=== PATIENT | female | born 1980 | race Two or more races ===

== ENCOUNTER 2021-03-14 19:17 | Inpatient (IN) | payer MEDICAID ==
[~2021-03-14] VITALS: Ht 160 cm; Wt 98.4 kg
[2021-03-14 19:17] VITALS: BP 149/104
[~2021-03-14 19:17] MED LIST: INSULIN GLARGINE UD 100 UNITS/ML SYR SUBCUT SCH
[2021-03-14 20:00] VITALS: BP 142/93
[2021-03-14] MEDS ORDERED: BENZONATATE 100MG CAPSULE PO PRN (22:15)
[2021-03-14] MEDS ORDERED: ONDANSETRON HCL 4MG TABLET PO PRN (22:15)
[2021-03-14] MEDS ORDERED: DEXTROSE 50% WATER 50ML SYRINGE IV PRN (22:15)
[2021-03-14] MEDS ORDERED: DIPHENHYDRAMINE 25MG CAPSULE PO PRN (22:15)
[2021-03-14] MEDS ORDERED: GLUCAGON,HUMAN RECOMBINANT 1MG/VIAL IM PRN (22:15)
[2021-03-14] MEDS ORDERED: DOCUSATE SODIUM 100MG CAPSULE PO PRN (22:15)
[2021-03-14] MEDS ORDERED: ACETAMINOPHEN 325MG TABLET PO PRN (22:15)
[2021-03-14] MEDS: BLOOD SUGAR DIAGNOSTIC STRIP TEST SCH (22:30)
[2021-03-14] MEDS: METOPROLOL TARTRATE 25MG TABLET PO SCH (23:56)
[2021-03-14] MEDS: HYDROCODONE/APAP 7.5/325MG 1 TAB TABLET PO PRN (23:57)
[2021-03-14] MEDS: ATORVASTATIN CALCIUM 40MG TABLET PO SCH (23:57)
[2021-03-15] MEDS: INSULIN GLARGINE UD 100 UNITS/ML SYR SUBCUT SCH ×3 (00:06→22:00)
[2021-03-15] MEDS: INSULIN LISPRO 100 UNITS/ML SUBCUT SCH ×5 (00:06→21:00)
[2021-03-15] MEDS ORDERED: *PATIENT'S OWN MEDICATION STORAGE XX SCH (02:45)
[2021-03-15] MEDS ORDERED: DIPH25TA62 MT (03:29)
[2021-03-15] MEDS: BLOOD SUGAR DIAGNOSTIC STRIP TEST SCH ×4 (06:25→21:19)
[2021-03-15 08:23] VITALS: BP 124/67
[2021-03-15] MEDS ORDERED: ENOXAPARIN 40MG/0.4ML SYR SUBCUT SCH (09:00)
[2021-03-15] MEDS: CLOPIDOGREL 75MG TABLET PO SCH (09:33)
[2021-03-15] MEDS: METOPROLOL TARTRATE 25MG TABLET PO SCH ×2 (09:34→21:20)
[2021-03-15] MEDS: ASPIRIN 325MG EC TABLET PO SCH (09:34)
[2021-03-15 10:05] LABS: BASOPHILS % 0.6 % (0.0-2.0); EOSINOPHILS % 1.2 % (0.0-5.0); HEMATOCRIT. 40.3 % (36.0-48.0); HEMOGLOBIN. 13.1 g/dL (12.0-16.0); LYMPHOCYTES % 29.6 % (20.0-50.0); MEAN CORPUSCULAR VOLUME 82.7 fL (81.0-99.0); MEAN PLATELET VOLUME 9.1 fl (7.4-10.4); MONOCYTES % 7.3 % (2.0-8.0); NEUTROPHILS % 61.3 % (40.0-76.0); PLATELET 267 x1000/uL (130-400); RED BLOOD CELL COUNT 4.87 mill/uL (4.2-5.4); RED CELL DISTRIBUTION WIDTH 14.1 % (11.6-14.6)
[2021-03-15 10:06] LABS: CHLORIDE 108 mEq/L (98-107)
[2021-03-15] MEDS: ENOXAPARIN 30MG/0.3ML SYR SUBCUT SCH ×2 (11:55→21:20)
[2021-03-15] MEDS: DOCUSATE SODIUM 100MG CAPSULE PO SCH ×2 (15:13→17:00)
[2021-03-15 20:00] VITALS: BP 164/89
[2021-03-15] MEDS: ATORVASTATIN CALCIUM 40MG TABLET PO SCH (21:19)
[2021-03-15] MEDS: HYDROCODONE/APAP 7.5/325MG 1 TAB TABLET PO PRN (21:22)
[2021-03-16] MEDS: BLOOD SUGAR DIAGNOSTIC STRIP TEST SCH ×4 (06:30→20:19)
[2021-03-16 08:04] VITALS: BP 150/96
[2021-03-16] MEDS: DOCUSATE SODIUM 100MG CAPSULE PO SCH ×2 (08:50→16:24)
[2021-03-16] MEDS: ENOXAPARIN 30MG/0.3ML SYR SUBCUT SCH ×2 (08:50→20:20)
[2021-03-16] MEDS: METOPROLOL TARTRATE 25MG TABLET PO SCH ×2 (08:51→20:19)
[2021-03-16] MEDS: CLOPIDOGREL 75MG TABLET PO SCH (08:51)
[2021-03-16] MEDS: ASPIRIN 325MG EC TABLET PO SCH (08:51)
[2021-03-16] MEDS: INSULIN LISPRO 100 UNITS/ML SUBCUT SCH ×4 (08:53→20:19)
[2021-03-16] MEDS: INSULIN GLARGINE UD 100 UNITS/ML SYR SUBCUT SCH ×2 (09:01→21:13)
[2021-03-16 20:00] VITALS: BP_SYST 148; BP_SYST 163; BP_DIAS 80; BP_DIAS 85
[2021-03-16] MEDS: ATORVASTATIN CALCIUM 40MG TABLET PO SCH (20:19)
[2021-03-16] MEDS: HYDROCODONE/APAP 7.5/325MG 1 TAB TABLET PO PRN (20:24)
[2021-03-17] MEDS: HYDROCODONE/APAP 7.5/325MG 1 TAB TABLET PO PRN ×2 (02:34→20:48)
[2021-03-17] MEDS: INSULIN LISPRO 100 UNITS/ML SUBCUT SCH ×4 (05:39→20:42)
[2021-03-17] MEDS: BLOOD SUGAR DIAGNOSTIC STRIP TEST SCH ×4 (05:39→20:43)
[2021-03-17 08:00] VITALS: BP 140/74
[2021-03-17] MEDS: ASPIRIN 325MG EC TABLET PO SCH (08:50)
[2021-03-17] MEDS: DOCUSATE SODIUM 100MG CAPSULE PO SCH ×2 (08:50→16:01)
[2021-03-17] MEDS: POLYETHYLENE GLYCOL 3350 (17GM) 1 DOSE PACK PO PRN (08:50)
[2021-03-17] MEDS: METOPROLOL TARTRATE 25MG TABLET PO SCH ×2 (08:51→20:42)
[2021-03-17] MEDS: CLOPIDOGREL 75MG TABLET PO SCH (08:51)
[2021-03-17] MEDS: ENOXAPARIN 30MG/0.3ML SYR SUBCUT SCH ×2 (08:51→20:43)
[2021-03-17] MEDS: INSULIN GLARGINE UD 100 UNITS/ML SYR SUBCUT SCH ×2 (10:40→21:47)
[2021-03-17 20:00] VITALS: BP 168/102
[2021-03-17 20:42] VITALS: BP 145/99
[2021-03-17] MEDS: ATORVASTATIN CALCIUM 40MG TABLET PO SCH (20:42)
[2021-03-18] MEDS: HYDROCODONE/APAP 7.5/325MG 1 TAB TABLET PO PRN ×2 (05:13→20:24)
[2021-03-18] MEDS: INSULIN LISPRO 100 UNITS/ML SUBCUT SCH ×4 (05:20→20:19)
[2021-03-18] MEDS: BLOOD SUGAR DIAGNOSTIC STRIP TEST SCH ×4 (05:20→20:19)
[2021-03-18 08:00] VITALS: BP 113/68
[2021-03-18] MEDS: ASPIRIN 325MG EC TABLET PO SCH (09:44)
[2021-03-18] MEDS: METOPROLOL TARTRATE 25MG TABLET PO SCH ×2 (09:44→20:19)
[2021-03-18] MEDS: CLOPIDOGREL 75MG TABLET PO SCH (09:45)
[2021-03-18] MEDS: DOCUSATE SODIUM 100MG CAPSULE PO SCH ×2 (09:45→17:12)
[2021-03-18] MEDS: ENOXAPARIN 30MG/0.3ML SYR SUBCUT SCH ×2 (09:45→20:19)
[2021-03-18] MEDS: INSULIN GLARGINE UD 100 UNITS/ML SYR SUBCUT SCH ×2 (10:00→21:21)
[2021-03-18] MEDS: BACLOFEN 10MG TABLET PO SCH (17:12)
[2021-03-18 20:00] VITALS: BP 135/93
[2021-03-18] MEDS: ATORVASTATIN CALCIUM 40MG TABLET PO SCH (20:18)
[2021-03-19] MEDS: BLOOD SUGAR DIAGNOSTIC STRIP TEST SCH ×4 (05:56→21:03)
[2021-03-19] MEDS: INSULIN LISPRO 100 UNITS/ML SUBCUT SCH ×4 (05:56→21:00)
[2021-03-19] MEDS: HYDROCODONE/APAP 7.5/325MG 1 TAB TABLET PO PRN ×3 (05:57→21:20)
[2021-03-19 08:00] VITALS: BP 140/83
[2021-03-19] MEDS: DOCUSATE SODIUM 100MG CAPSULE PO SCH ×2 (11:27→16:32)
[2021-03-19] MEDS: ASPIRIN 325MG EC TABLET PO SCH (11:28)
[2021-03-19] MEDS: BACLOFEN 10MG TABLET PO SCH ×2 (11:28→16:32)
[2021-03-19] MEDS: METOPROLOL TARTRATE 25MG TABLET PO SCH ×2 (11:29→21:05)
[2021-03-19] MEDS: CLOPIDOGREL 75MG TABLET PO SCH (11:30)
[2021-03-19] MEDS: ENOXAPARIN 30MG/0.3ML SYR SUBCUT SCH ×2 (11:32→21:06)
[2021-03-19] MEDS: INSULIN GLARGINE UD 100 UNITS/ML SYR SUBCUT SCH ×2 (11:35→21:07)
[2021-03-19] MEDS: POLYETHYLENE GLYCOL 3350 (17GM) 1 DOSE PACK PO PRN (15:26)
[2021-03-19 20:00] VITALS: BP 139/91
[2021-03-19] MEDS: ATORVASTATIN CALCIUM 40MG TABLET PO SCH (21:04)
[2021-03-20] MEDS: BLOOD SUGAR DIAGNOSTIC STRIP TEST SCH ×4 (06:41→21:00)
[2021-03-20 08:00] VITALS: BP 115/73
[2021-03-20] MEDS: INSULIN LISPRO 100 UNITS/ML SUBCUT SCH ×4 (09:00→22:15)
[2021-03-20] MEDS: ASPIRIN 325MG EC TABLET PO SCH (09:37)
[2021-03-20] MEDS: METOPROLOL TARTRATE 25MG TABLET PO SCH ×2 (09:38→22:16)
[2021-03-20] MEDS: CLOPIDOGREL 75MG TABLET PO SCH (09:38)
[2021-03-20] MEDS: DOCUSATE SODIUM 100MG CAPSULE PO SCH ×2 (09:38→18:14)
[2021-03-20] MEDS: BACLOFEN 10MG TABLET PO SCH ×2 (09:38→18:14)
[2021-03-20] MEDS: ENOXAPARIN 30MG/0.3ML SYR SUBCUT SCH ×2 (09:38→22:16)
[2021-03-20] MEDS: HYDROCODONE/APAP 7.5/325MG 1 TAB TABLET PO PRN ×2 (09:51→22:14)
[2021-03-20] MEDS: INSULIN GLARGINE UD 100 UNITS/ML SYR SUBCUT SCH ×2 (10:28→22:16)
[2021-03-20] MEDS ORDERED: ONDANSETRON HCL 4MG/2ML INJ IV PRN (10:45)
[2021-03-20] MEDS ORDERED: HYDRALAZINE 10 MG in SODIUM CHLORIDE 0.9% 49.5 ML IV PRN (11:00)
[2021-03-20] MEDS ORDERED: HYDRALAZINE 20MG/ML VIAL IV SCH (12:00)
[2021-03-20] MEDS: CLONIDINE HCL 0.2MG/24HR PATCH TD SCH (12:24)
[2021-03-20 20:00] VITALS: BP 148/96
[2021-03-20] MEDS: ATORVASTATIN CALCIUM 40MG TABLET PO SCH (22:17)
[2021-03-21] MEDS: HYDROCODONE/APAP 7.5/325MG 1 TAB TABLET PO PRN ×2 (04:16→18:11)
[2021-03-21] MEDS: BLOOD SUGAR DIAGNOSTIC STRIP TEST SCH ×4 (06:46→21:00)
[2021-03-21] MEDS: DOCUSATE SODIUM 100MG CAPSULE PO SCH ×2 (08:41→17:44)
[2021-03-21] MEDS: BACLOFEN 10MG TABLET PO SCH ×2 (08:42→17:44)
[2021-03-21] MEDS: CLOPIDOGREL 75MG TABLET PO SCH (08:42)
[2021-03-21] MEDS: ASPIRIN 325MG EC TABLET PO SCH (08:42)
[2021-03-21] MEDS: METOPROLOL TARTRATE 25MG TABLET PO SCH ×2 (08:43→22:28)
[2021-03-21] MEDS: ENOXAPARIN 30MG/0.3ML SYR SUBCUT SCH ×2 (08:44→22:28)
[2021-03-21] MEDS: INSULIN LISPRO 100 UNITS/ML SUBCUT SCH ×4 (08:46→21:00)
[2021-03-21] MEDS: INSULIN GLARGINE UD 100 UNITS/ML SYR SUBCUT SCH ×2 (10:40→22:37)
[2021-03-21] MEDS: POLYETHYLENE GLYCOL 3350 (17GM) 1 DOSE PACK PO PRN (17:52)
[2021-03-21 20:00] VITALS: BP 118/80
[2021-03-21] MEDS: ATORVASTATIN CALCIUM 40MG TABLET PO SCH (22:28)
[2021-03-22 06:21] LABS: CHLORIDE 110 mEq/L (98-107)
[2021-03-22] MEDS: BLOOD SUGAR DIAGNOSTIC STRIP TEST SCH ×4 (06:43→21:42)
[2021-03-22 06:50] LABS: BASOPHILS % 0.7 % (0.0-2.0); EOSINOPHILS % 2.2 % (0.0-5.0); HEMATOCRIT. 39.2 % (36.0-48.0); HEMOGLOBIN. 12.7 g/dL (12.0-16.0); LYMPHOCYTES % 49.8 % (20.0-50.0); MEAN CORPUSCULAR HEMOGLOBIN 26.7 pg (28.0-32.0); MEAN CORPUSCULAR VOLUME 82.3 fL (81.0-99.0); MONOCYTES % 8.6 % (2.0-8.0); NEUTROPHILS % 38.7 % (40.0-76.0); PLATELET 249 x1000/uL (130-400); RED BLOOD CELL COUNT 4.77 mill/uL (4.2-5.4); RED CELL DISTRIBUTION WIDTH 13.7 % (11.6-14.6)
[2021-03-22 07:45] VITALS: BP 136/92
[2021-03-22] MEDS: CLOPIDOGREL 75MG TABLET PO SCH (08:01)
[2021-03-22] MEDS: ASPIRIN 325MG EC TABLET PO SCH (08:01)
[2021-03-22] MEDS: BACLOFEN 10MG TABLET PO SCH ×2 (08:01→17:04)
[2021-03-22] MEDS: DOCUSATE SODIUM 100MG CAPSULE PO SCH ×2 (08:01→17:04)
[2021-03-22] MEDS: METOPROLOL TARTRATE 25MG TABLET PO SCH ×2 (08:02→21:40)
[2021-03-22] MEDS: ENOXAPARIN 30MG/0.3ML SYR SUBCUT SCH ×2 (08:04→21:42)
[2021-03-22] MEDS: INSULIN LISPRO 100 UNITS/ML SUBCUT SCH ×4 (08:05→21:00)
[2021-03-22 08:37] VITALS: BP 171/95
[2021-03-22 08:41] VITALS: BP 150/91
[2021-03-22 10:15] VITALS: BP 143/81
[2021-03-22] MEDS: INSULIN GLARGINE UD 100 UNITS/ML SYR SUBCUT SCH ×2 (10:26→21:49)
[2021-03-22 12:42] LABS: BASOPHILS % 0.8 % (0.0-2.0); EOSINOPHILS % 2.1 % (0.0-5.0); HEMATOCRIT. 38.7 % (36.0-48.0); HEMOGLOBIN. 12.4 g/dL (12.0-16.0); MEAN CORPUSCULAR HEMOGLOBIN 26.4 pg (28.0-32.0); MEAN CORPUSCULAR VOLUME 82.5 fL (81.0-99.0); MEAN PLATELET VOLUME 8.7 fl (7.4-10.4); MONOCYTES % 8.7 % (2.0-8.0); NEUTROPHILS % 46.4 % (40.0-76.0); PLATELET 268 x1000/uL (130-400); RED BLOOD CELL COUNT 4.69 mill/uL (4.2-5.4)
[2021-03-22 12:49] LABS: CHLORIDE 110 mEq/L (98-107)
[2021-03-22 16:09] LABS: UCG SCREEN NEGATIVE
[2021-03-22] MEDS: HYDROCODONE/APAP 7.5/325MG 1 TAB TABLET PO PRN (17:00)
[2021-03-22 17:10] VITALS: BP 136/78
[2021-03-22 20:00] VITALS: BP 100/60
[2021-03-22] MEDS: ATORVASTATIN CALCIUM 40MG TABLET PO SCH (21:40)
[2021-03-23] MEDS: BLOOD SUGAR DIAGNOSTIC STRIP TEST SCH ×4 (06:37→20:26)
[2021-03-23 07:48] VITALS: BP 136/82
[2021-03-23] MEDS: DOCUSATE SODIUM 100MG CAPSULE PO SCH ×2 (08:35→17:14)
[2021-03-23] MEDS: ASPIRIN 325MG EC TABLET PO SCH (08:35)
[2021-03-23] MEDS: BACLOFEN 10MG TABLET PO SCH ×2 (08:35→17:14)
[2021-03-23] MEDS: CLOPIDOGREL 75MG TABLET PO SCH (08:35)
[2021-03-23] MEDS: METOPROLOL TARTRATE 25MG TABLET PO SCH ×2 (08:37→20:26)
[2021-03-23] MEDS: INSULIN LISPRO 100 UNITS/ML SUBCUT SCH ×4 (08:38→20:46)
[2021-03-23] MEDS: ENOXAPARIN 30MG/0.3ML SYR SUBCUT SCH ×2 (09:00→20:26)
[2021-03-23] MEDS: INSULIN GLARGINE UD 100 UNITS/ML SYR SUBCUT SCH ×2 (10:00→20:43)
[2021-03-23] MEDS: POLYETHYLENE GLYCOL 3350 (17GM) 1 DOSE PACK PO PRN (18:23)
[2021-03-23 20:00] VITALS: BP 122/85
[2021-03-23] MEDS: ATORVASTATIN CALCIUM 40MG TABLET PO SCH (20:26)
[2021-03-23] MEDS: HYDROCODONE/APAP 7.5/325MG 1 TAB TABLET PO PRN (23:11)
[2021-03-24] MEDS: BLOOD SUGAR DIAGNOSTIC STRIP TEST SCH ×4 (05:39→21:12)
[2021-03-24] MEDS: INSULIN LISPRO 100 UNITS/ML SUBCUT SCH ×4 (05:40→21:00)
[2021-03-24 07:45] VITALS: BP 127/81
[2021-03-24 07:46] VITALS: BP 127/81
[2021-03-24] MEDS: POLYETHYLENE GLYCOL 3350 (17GM) 1 DOSE PACK PO PRN (08:11)
[2021-03-24] MEDS: ENOXAPARIN 30MG/0.3ML SYR SUBCUT SCH ×2 (08:12→21:12)
[2021-03-24] MEDS: ASPIRIN 325MG EC TABLET PO SCH (08:12)
[2021-03-24] MEDS: CLOPIDOGREL 75MG TABLET PO SCH (08:12)
[2021-03-24] MEDS: DOCUSATE SODIUM 100MG CAPSULE PO SCH ×2 (08:12→17:23)
[2021-03-24] MEDS: BACLOFEN 10MG TABLET PO SCH ×2 (08:12→17:23)
[2021-03-24] MEDS: METOPROLOL TARTRATE 25MG TABLET PO SCH ×2 (08:12→21:11)
[2021-03-24] MEDS: INSULIN GLARGINE UD 100 UNITS/ML SYR SUBCUT SCH ×2 (09:19→21:15)
[2021-03-24 20:14] VITALS: BP 129/84
[2021-03-24] MEDS: HYDROCODONE/APAP 7.5/325MG 1 TAB TABLET PO PRN (21:11)
[2021-03-24] MEDS: ATORVASTATIN CALCIUM 40MG TABLET PO SCH (21:11)
[2021-03-25] MEDS: HYDROCODONE/APAP 7.5/325MG 1 TAB TABLET PO PRN ×2 (06:00→16:59)
[2021-03-25] MEDS: BLOOD SUGAR DIAGNOSTIC STRIP TEST SCH ×4 (06:01→20:14)
[2021-03-25 08:01] VITALS: BP 116/58
[2021-03-25] MEDS: INSULIN LISPRO 100 UNITS/ML SUBCUT SCH ×4 (08:13→20:14)
[2021-03-25] MEDS: CLOPIDOGREL 75MG TABLET PO SCH (09:51)
[2021-03-25] MEDS: BACLOFEN 10MG TABLET PO SCH ×2 (09:51→16:58)
[2021-03-25] MEDS: ASPIRIN 325MG EC TABLET PO SCH (09:51)
[2021-03-25] MEDS: DOCUSATE SODIUM 100MG CAPSULE PO SCH ×2 (09:51→16:58)
[2021-03-25] MEDS: METOPROLOL TARTRATE 25MG TABLET PO SCH ×2 (09:52→20:13)
[2021-03-25] MEDS: ENOXAPARIN 30MG/0.3ML SYR SUBCUT SCH ×2 (09:52→20:14)
[2021-03-25] MEDS: POLYETHYLENE GLYCOL 3350 (17GM) 1 DOSE PACK PO PRN (09:52)
[2021-03-25] MEDS: INSULIN GLARGINE UD 100 UNITS/ML SYR SUBCUT SCH ×2 (09:53→21:24)
[2021-03-25 20:00] VITALS: BP 114/61
[2021-03-25] MEDS: ATORVASTATIN CALCIUM 40MG TABLET PO SCH (20:13)
[2021-03-26] MEDS: HYDROCODONE/APAP 7.5/325MG 1 TAB TABLET PO PRN (05:36)
[2021-03-26] MEDS: INSULIN LISPRO 100 UNITS/ML SUBCUT SCH ×4 (05:40→21:00)
[2021-03-26] MEDS: BLOOD SUGAR DIAGNOSTIC STRIP TEST SCH ×4 (05:40→21:00)
[2021-03-26 08:00] VITALS: BP 137/88
[2021-03-26] MEDS: METOPROLOL TARTRATE 25MG TABLET PO SCH ×2 (09:00→22:26)
[2021-03-26] MEDS: DOCUSATE SODIUM 100MG CAPSULE PO SCH ×2 (10:12→17:55)
[2021-03-26] MEDS: ASPIRIN 325MG EC TABLET PO SCH (10:12)
[2021-03-26] MEDS: BACLOFEN 10MG TABLET PO SCH ×2 (10:12→17:57)
[2021-03-26] MEDS: ENOXAPARIN 30MG/0.3ML SYR SUBCUT SCH ×2 (10:13→21:00)
[2021-03-26] MEDS: CLOPIDOGREL 75MG TABLET PO SCH (10:13)
[2021-03-26] MEDS: INSULIN GLARGINE UD 100 UNITS/ML SYR SUBCUT SCH ×2 (10:18→22:00)
[2021-03-26 20:00] VITALS: BP 124/90
[2021-03-26] MEDS: ATORVASTATIN CALCIUM 40MG TABLET PO SCH (21:00)
[2021-03-27] MEDS: HYDROCODONE/APAP 7.5/325MG 1 TAB TABLET PO PRN ×2 (05:38→21:03)
[2021-03-27] MEDS: BLOOD SUGAR DIAGNOSTIC STRIP TEST SCH ×4 (06:00→20:59)
[2021-03-27] MEDS: INSULIN LISPRO 100 UNITS/ML SUBCUT SCH ×4 (06:00→20:59)
[2021-03-27 07:37] VITALS: BP 147/95
[2021-03-27] MEDS: CLOPIDOGREL 75MG TABLET PO SCH (09:23)
[2021-03-27] MEDS: DOCUSATE SODIUM 100MG CAPSULE PO SCH ×2 (09:23→16:44)
[2021-03-27] MEDS: METOPROLOL TARTRATE 25MG TABLET PO SCH ×2 (09:24→21:00)
[2021-03-27] MEDS: ASPIRIN 325MG EC TABLET PO SCH (09:24)
[2021-03-27] MEDS: BACLOFEN 10MG TABLET PO SCH ×2 (09:24→16:44)
[2021-03-27] MEDS: ENOXAPARIN 30MG/0.3ML SYR SUBCUT SCH (09:25)
[2021-03-27] MEDS: CLONIDINE HCL 0.2MG/24HR PATCH TD SCH (09:25)
[2021-03-27] MEDS: INSULIN GLARGINE UD 100 UNITS/ML SYR SUBCUT SCH ×2 (10:32→22:18)
[2021-03-27 20:00] VITALS: BP_SYST 105; BP_SYST 89; BP_DIAS 60
[2021-03-27] MEDS: ATORVASTATIN CALCIUM 40MG TABLET PO SCH (21:02)
[2021-03-28] MEDS: HYDROCODONE/APAP 7.5/325MG 1 TAB TABLET PO PRN ×2 (04:09→18:49)
[2021-03-28] MEDS: BLOOD SUGAR DIAGNOSTIC STRIP TEST SCH ×4 (05:57→21:26)
[2021-03-28] MEDS: INSULIN LISPRO 100 UNITS/ML SUBCUT SCH ×4 (07:40→21:00)
[2021-03-28 08:00] VITALS: BP 137/79
[2021-03-28] MEDS: CLOPIDOGREL 75MG TABLET PO SCH (08:28)
[2021-03-28] MEDS: ASPIRIN 325MG EC TABLET PO SCH (08:28)
[2021-03-28] MEDS: DOCUSATE SODIUM 100MG CAPSULE PO SCH ×2 (08:28→16:00)
[2021-03-28] MEDS: METOPROLOL TARTRATE 25MG TABLET PO SCH ×2 (08:28→21:00)
[2021-03-28] MEDS: BACLOFEN 10MG TABLET PO SCH ×2 (08:28→16:00)
[2021-03-28] MEDS: INSULIN GLARGINE UD 100 UNITS/ML SYR SUBCUT SCH ×2 (10:28→22:00)
[2021-03-28 20:00] VITALS: BP 141/80
[2021-03-28] MEDS: ATORVASTATIN CALCIUM 40MG TABLET PO SCH (21:01)
[2021-03-29] MEDS: HYDROCODONE/APAP 7.5/325MG 1 TAB TABLET PO PRN ×2 (01:17→06:38)
[2021-03-29] MEDS: BLOOD SUGAR DIAGNOSTIC STRIP TEST SCH ×2 (06:26→11:13)
[2021-03-29 08:14] VITALS: BP 136/88
[2021-03-29] MEDS: INSULIN LISPRO 100 UNITS/ML SUBCUT SCH ×2 (09:00→13:00)
[2021-03-29] MEDS: POLYETHYLENE GLYCOL 3350 (17GM) 1 DOSE PACK PO PRN (09:06)
[2021-03-29] MEDS: DOCUSATE SODIUM 100MG CAPSULE PO SCH (09:06)
[2021-03-29] MEDS: CLOPIDOGREL 75MG TABLET PO SCH (09:06)
[2021-03-29] MEDS: ASPIRIN 325MG EC TABLET PO SCH (09:06)
[2021-03-29] MEDS: BACLOFEN 10MG TABLET PO SCH (09:06)
[2021-03-29] MEDS: METOPROLOL TARTRATE 25MG TABLET PO SCH (09:15)
[2021-03-29 09:32] VITALS: BP 136/88
[2021-03-29] MEDS: INSULIN GLARGINE UD 100 UNITS/ML SYR SUBCUT SCH (11:13)
== END 2021-03-29 14:00 | disposition home health service (06) | DRG 58 ==
PROVIDERS: ADMIT Psychiatry & Neurology Neurology; ATTEND Hospitalist
DX: I69.354 Hemiplegia and hemiparesis following cerebral infarction affecting left non-dominant side (principal); I63.9 Cerebral infarction, unspecified; E66.01 Morbid (severe) obesity due to excess calories; E78.5 Hyperlipidemia, unspecified; I10 Essential (primary) hypertension; I25.10 Atherosclerotic heart disease of native coronary artery without angina pectoris; I16.0 Hypertensive urgency; R47.1 Dysarthria and anarthria; R26.9 Unspecified abnormalities of gait and mobility; I25.2 Old myocardial infarction; Z95.5 Presence of coronary angioplasty implant and graft; Z68.38 Body mass index [BMI] 38.0-38.9, adult; Z56.0 Unemployment, unspecified; E11.65 Type 2 diabetes mellitus with hyperglycemia
CPT/HCPCS: 36415; 70544; 70553; 80048; 80053; 81025; 82962; 85025; 92523; 92610; 93970; 97110; 97112; 97116; 97162; 97166; 97530; 97535; C1893; J0360; J1650; J1815; J2405; Q0162; Q0163